=== PATIENT | male | born 1945 | race Caucasian/White ===

== ENCOUNTER → 2023-11-20 08:00 | Outpatient (REF) | payer MEDICARE, OTHER, SELFPAY ==
[2023-11-20 08:45] LABS: Urine Albumin 1+ (Neg - Trace); Urine Bilirubin Negative (Negative); Urine Character Clear (Clear); Urine Color Yellow; Urine Glucose Trace (Negative); Urine Ketone Negative (Negative); Urine Leukocyte Negative (Negative); Urine Nitrite Negative (Negative); Urine Occult Blood 1+ (Negative); Urine Urobilinogen Negative (Neg - 1+)
[2023-11-20 09:06] LABS: Urine Bacteria Few (Negative); Urine Red Blood Cell 0-2 /HPF (0-2); Urine White Cell 0-2 /HPF (0-5)
[2023-11-20 09:07] LABS: % Basophils 2.3 % (0-2); % Eosinophils 5.9 % (0-6); % Immature Granulocytes 0.3 % (0-0.5); % Lymphocytes 33.1 % (20.5-51.1); % Monocytes 10.5 % (1.7-9.3); % Neutrophils 47.9 % (42.2-75.2); Absolute Basophils 0.1 10^3/uL (0-0.2); Absolute Eosinophils 0.2 10^3/uL (0-0.7); Absolute Lymphocytes 1.3 10^3/uL (1.2-3.4); Absolute Monocytes 0.4 10^3/uL (0.1-0.6); Absolute Neutrophils 1.9 10^3/uL (1.4-6.5); Hematocrit 44.8 % (39.0-52.0); Hemoglobin 15.6 g/dL (13.0-18.0); Mean Corp Hgb Conc. 34.8 g/dL (33.0-37.0); Mean Corpuscular Hgb 32.8 pg (27.0-31.0); Mean Corpuscular Volume 94.1 fL (80.0-94.0); Mean Platelet Volume 9.3 fL (7.4-10.4); Nucleated Red Blood Cells % 0 % (-); Platelet Count 239 10^3/uL (130-400); Red Blood Cell Count 4.76 10^6/uL (4.70-6.10); Red Cell Dist. Width 14.2 % (11.5-14.5); White Blood Cell Count 3.9 10^3/uL (4.8-10.8)
[2023-11-20 09:17] LABS: ALT (SGPT) 21 U/L (0-50); AST (SGOT) 25 U/L (17-59); Albumin 3.8 g/dl (3.5-5.0); Alkaline Phosphatase 144 U/L (38-126); Blood Urea Nitrogen 16 mg/dl (9-20); Calcium 9.7 mg/dl (8.4-10.2); Carbon Dioxide 22 mmol/L (22-30); Chloride 106 mmol/L (98-107); Glucose 99 mg/dl (70-99); HDL Cholesterol 53 mg/dl; LDL Cholesterol, Calculated 87 mg/dl; Potassium 3.8 mmol/L (3.5-5.1); Sodium 138 mmol/L (135-145); Total Bilirubin 0.8 mg/dl (0.2-1.3); Total Cholesterol 162 mg/dl (50-199); Total Protein 6.3 g/dl (6.3-8.2); Triglyceride 111 mg/dl (10-149); Very Low Density Lipoprotein 22 mg/dl (0-30); eGFR 56.23
[2023-11-20 09:42] LABS: PSA, Total - Diagnostic 7.57 ng/ml (0.0-4.0)
== END ==
LOC: REG 08:00
PROVIDERS: ATTENDING PHYSICIAN Specialist; FAMILY PHYSICIAN Family Medicine
DX: C91.40 Hairy cell leukemia not having achieved remission (principal); E78.5 Hyperlipidemia, unspecified; I10 Essential (primary) hypertension; C61 Malignant neoplasm of prostate
CPT/HCPCS: 36415; 80053; 80061; 81003; 81015; 84153; 85025

== ENCOUNTER → 2024-01-14 09:43 | Outpatient (REF) | payer MEDICARE, OTHER, SELFPAY | LOC: REG 09:43 | PROVIDERS: ATTENDING PHYSICIAN Specialist; FAMILY PHYSICIAN Family Medicine | DX: C61 Malignant neoplasm of prostate (principal) | CPT/HCPCS: 36415; 84153 ==

== ENCOUNTER → 2024-01-25 08:18 | Outpatient (REF) | payer MEDICARE, OTHER, SELFPAY | LOC: DHCBS MAIN 08:18 | PROVIDERS: ATTENDING PHYSICIAN Nuclear Medicine Nuclear Cardiology; FAMILY PHYSICIAN Family Medicine | DX: I35.0 Nonrheumatic aortic (valve) stenosis (principal); I35.1 Nonrheumatic aortic (valve) insufficiency | CPT/HCPCS: 93306 ==

== ENCOUNTER → 2024-04-04 06:44 | Outpatient (REF) | payer MEDICARE, OTHER, SELFPAY ==
[2024-04-04 08:50] LABS: PSA, Total - Diagnostic 8.03 ng/ml (0.0-4.0)
== END ==
LOC: REG 06:44
PROVIDERS: ATTENDING PHYSICIAN Specialist; FAMILY PHYSICIAN Family Medicine
DX: C61 Malignant neoplasm of prostate (principal)
CPT/HCPCS: 36415; 84153

== ENCOUNTER → 2024-04-06 17:27 | Outpatient (REF) | payer MEDICARE, OTHER, SELFPAY | LOC: PAVMRI 17:27 | PROVIDERS: ATTENDING PHYSICIAN Internal Medicine; FAMILY PHYSICIAN Family Medicine | DX: M54.50 Low back pain, unspecified (principal); C90.00 Multiple myeloma not having achieved remission | CPT/HCPCS: 72148 ==

== ENCOUNTER → 2024-05-18 09:27 | Outpatient (REF) | payer MEDICARE, OTHER, SELFPAY | LOC: RAD 09:27 | PROVIDERS: ATTENDING PHYSICIAN Internal Medicine; FAMILY PHYSICIAN Family Medicine | DX: M85.80 Other specified disorders of bone density and structure, unspecified site (principal); M85.89 Other specified disorders of bone density and structure, multiple sites | CPT/HCPCS: 77080 ==

== ENCOUNTER → 2024-07-06 06:30 | Outpatient (REF) | payer MEDICARE, OTHER, SELFPAY ==
[2024-07-06 08:43] LABS: PSA, Total - Diagnostic 6.67 ng/ml (0.0-4.0)
== END ==
LOC: REG 06:30
PROVIDERS: ATTENDING PHYSICIAN Specialist; FAMILY PHYSICIAN Family Medicine
DX: C61 Malignant neoplasm of prostate (principal)
CPT/HCPCS: 36415; 84153

== ENCOUNTER → 2024-10-10 08:17 | Outpatient (REF) | payer MEDICARE, OTHER, SELFPAY ==
[2024-10-10 09:53] LABS: PSA, Total - Diagnostic 7.72 ng/ml (0.0-4.0)
== END ==
LOC: REG 08:17
PROVIDERS: ATTENDING PHYSICIAN Specialist; FAMILY PHYSICIAN Family Medicine
DX: C61 Malignant neoplasm of prostate (principal)
CPT/HCPCS: 36415; 84153

== ENCOUNTER → 2024-12-22 11:44 | Outpatient (REF) | payer MEDICARE, OTHER, SELFPAY | LOC: RAD 11:44 | PROVIDERS: ATTENDING PHYSICIAN Family Medicine; FAMILY PHYSICIAN Family Medicine | DX: M12.511 Traumatic arthropathy, right shoulder (principal) | CPT/HCPCS: 71101; 73000; 73030 ==

== ENCOUNTER → 2025-01-19 08:13 | Outpatient (REF) | payer MEDICARE, OTHER, SELFPAY ==
[2025-01-19 11:46] LABS: PSA, Total - Diagnostic 8.13 ng/ml (0.0-4.0)
== END ==
LOC: RCS 08:13
PROVIDERS: ATTENDING PHYSICIAN Nuclear Medicine Nuclear Cardiology; FAMILY PHYSICIAN Family Medicine; OTHER PHYSICIAN Specialist
DX: I10 Essential (primary) hypertension (principal); I25.10 Atherosclerotic heart disease of native coronary artery without angina pectoris; C61 Malignant neoplasm of prostate; I35.0 Nonrheumatic aortic (valve) stenosis
CPT/HCPCS: 36415; 84153; 93306

== ENCOUNTER → 2025-04-12 10:37 | Outpatient (REF) | payer MEDICARE, OTHER, SELFPAY ==
[2025-04-12 12:30] LABS: PSA, Total - Diagnostic 9.12 ng/ml (0.0-4.0)
== END ==
LOC: REG 10:37
PROVIDERS: ATTENDING PHYSICIAN Specialist; FAMILY PHYSICIAN Family Medicine
DX: C61 Malignant neoplasm of prostate (principal)
CPT/HCPCS: 36415; 84153

== ENCOUNTER → 2025-08-02 13:02 | Outpatient (REF) | payer MEDICARE, OTHER, SELFPAY ==
[2025-08-02 15:51] LABS: PSA, Total - Diagnostic 9.53 ng/ml (0.0-4.0)
== END ==
LOC: REG 13:02
PROVIDERS: ATTENDING PHYSICIAN Specialist; FAMILY PHYSICIAN Family Medicine
DX: C61 Malignant neoplasm of prostate (principal)
CPT/HCPCS: 36415; 84153

== ENCOUNTER 2025-09-08 13:37 | Inpatient (IN) | payer MEDICARE, OTHER, SELFPAY ==
[2025-09-08] VITALS (11 sets, daily range): BP systolic 116–155; BP diastolic 59–84
--- NOTE | 2025-09-08 07:04 | ED.GENMED ---
History of Present Illness
General
Chief Complaint: Abdominal Symptoms
Source: patient and family
Time Seen by Provider: 09/08/25 06:37
History of Present Illness
History of Present Illness:
80-year-old male presents to the emergency room complaining of abdominal pain, nausea and vomiting. Symptoms began over the past 24 hours. The patient states the abdominal pain is crampy in nature. It is quite intense at its maximum. No history
of bowel obstructions though the patient has had previous abdominal surgeries including cholecystectomy and appendectomy. Pain stays in the abdomen. Does not radiate. He has noted his abdomen to be distended and feels 'hard'. Patient does have
issues with constipation.
Past History
Past History
ED Past Medical History: CAD, Cancer (CLL), Hypercholesterolemia, Other (Chronic sinusitis, low back pain, migraine headaches, Maniers Disease, Sleep apnea uses CPAP raynauds, ), Other (BPH) and Other (Kidney stones)
ED Past Surgical History: Appendectomy, Cholecystectomy, Orthopedic (Left meniscus repair, Lumbar spacer), Urological and Other (Hernia repair, cystoscopy, varicocele repair, right thum amputation)
Social History
Tobacco: Former smoker
Alcohol: Occasional
Personal:
Living: with family
Employment: Retired
Family History
Family History: Negative Diabetes, Hypertension, Asthma or Cancer
Phy Exam
Physical Exam
Physical Exam:
General: Awake, Alert, Oriented X3. No acute distress.
Vitals: unremarkable
Head: Atraumatic
Eyes: Pupils equal, EOMI
Throat: Airway intact, no exudates, dry mucosa
Neck: Trachea midline
Lungs: Clear and equal b/l
Heart: Regular rate, no murmurs
Abd: Soft, somewhat distended, firm, tender diffusely, No pulsatile mass
Neuro: Nonfocal
Skin: Warm, dry, no rash
Extremities: pulses equal b/l, no edema
Course
Orders/Labs/Results
Orders:
Orders
09/08/25 06:26
EKG [Electrocardiogram (*1)] Urgent
Reason for Study: Abdominal Pain
Other Reason for Exam: vomiting
09/08/25 06:27
EKG- Treatment ONCE
09/08/25 06:55
Complete Blood Count/With Diff Urgent
Comprehensive Metabolic Panel Urgent
Lipase Urgent
09/08/25 07:02
CT Abd/pel W Iv And Oral Contr Urgent
Comment:
Reason For Exam: abd pain/vomiting. pre-treatment ordered
HYDROmorphone [Dilaudid] 0.5 mg IV NOW STA
Iohexol [Omnipaque] See Protocol PO NOW STA
Ondansetron Injectable [Zofran] 4 mg IV NOW STA
09/08/25 07:03
Lactated Ringers [Lr] 1,000 ml IV BOLUS
09/08/25 07:04
Diphenhydramine [Benadryl] 50 mg IV NOW STA
Hydrocortisone Sod Succinate [Solu-Cortef] 200 mg IV NOW STA
09/08/25 07:10
Lactic Acid Urgent
Urinalysis Reflex To Culture Urgent
Date Specimen was Collected: 09/08/25
Time Specimen was Collected: 07:08
Urine Microscopic Reflex Cult Urgent
Urine Culture Urgent
ROYAL Source: U
Specimen Description:
Date Specimen was Collected: 09/08/25
Time Specimen was Collected: 07:08
09/08/25 11:43
HYDROmorphone [Dilaudid] 0.5 mg IV NOW STA
Abnormal Lab Results
09/08/25 09/08/25
06:55 07:10
RBC 4.69 L 10^6/uL
(4.70-6.10)
MCV 95.9 H fL
(80.0-94.0)
MCH 33.3 H pg
(27.0-31.0)
Absolute Lymphs (auto) 0.6 L 10^3/uL
(1.2-3.4)
Neutrophils % 79.8 H %
(42.2-75.2)
Lymphocytes % 11.1 L %
(20.5-51.1)
Creatinine 1.5 H mg/dL
(0.7-1.3)
Glucose 147 H mg/dl
(70-99)
Urine RBC 11-15 A /HPF
(0-2)
Urine Bacteria (Reflex) Many A
(Negative)
Urine Albumin (Reflex) 2+ A
(Neg - Trace)
09/08/25 06:55
09/08/25 06:55
Vital Signs
Initial and Last Documented VS:
Initial Vital Signs
Temp Pulse Resp BP Pulse Ox
97.5 F 72 28 131/84 98
09/08/25 06:29 09/08/25 06:29 09/08/25 06:29 09/08/25 06:29 09/08/25 06:29
Last Documented Vital Signs
Temp Pulse Resp BP Pulse Ox
97.5 F 72 28 155/79 96
09/08/25 06:29 09/08/25 06:29 09/08/25 06:29 09/08/25 10:32 09/08/25 10:33
MDM/Problems Addressed
Differential Diagnosis Includes:
Small bowel obstruction, gastroenteritis, diverticulitis
MDM/Problems Addressed:
Patient presents with abdominal pain, abdominal distention and nausea. Labs showed normal white count. Lactate is normal. Rest of the labs are reassuring. CT shows evidence for small bowel obstruction. Patient will require hospitalization.
Hold off on an NG tube at this point as he is not vomiting. Patient will be admitted to the hospitalist.
*Radiology
Radiology exam reviewed: radiology read reviewed
*Pulse Oximetry
SaO2: 98
Oxygen Mode of Delivery: Room air
Patient hypoxic: no
*EKG
Interpretation: abnormal
Heart Rate: 69
Rate: normal
Rhythm: av sequential
QRS Pattern: left bundle branch block
Ischemia: non-specific ST changes
*[employer]er Interpretation
Rate: normal
Interpretation: abnormal
Rhythm: av sequential
*Critical Care Note
Total Time (30-74mins, 75-104mins- exclusive of procedures): Not Applicable
Patient Management
Social determinants of health affecting care: Living situation and Strong social support
ED Attending Note
-
Portions of this chart may have been created with voice recognition software.� Occasional wrong word or��sound alike� substitutions may have occurred due to the inherent limitations of voice recognition software.
Discharge Plan
Departure
Patient Disposition: Admit
Date of Disposition: 09/08/25
Time of Disposition: 11:40
Admit to: Med/Surg
Presentation/result/management discussed w/ accepting MD/DO: Hospitalist
Discharge Problem:
Small bowel obstruction
Prescriptions:
No Action
Vitamin C 100 MG tablet
1,000 mg PO DAILY
multivitamin with folic acid [Tab-A-Kristina] 1 TABLET tablet
1 tab PO DAILY
aspirin [Shauna Low Dose Aspirin] 81 MG tablet,delayed release (DR/EC)
81 mg PO DAILY
bicalutamide 50 mg Tablet
50 mg PO QPM
sennosides [senna] 8.6 mg Tablet
17.2 mg PO DAILY
famotidine [Pepcid] 40 mg Tablet
40 mg PO DAILY
alendronate [Fosamax] 70 mg Tablet
70 mg PO SA
acyclovir 400 mg Tablet
400 mg PO BID
simvastatin [Zocor] 40 mg Tablet
40 mg PO QPM
gabapentin 300 mg Capsule
300 mg PO BID
lenalidomide [Revlimid] 5 mg Capsule
5 mg PO DIRECTED
Rx Instructions:
take for 21 days then 7 days off
silodosin 8 mg Capsule
8 mg PO QPM
omega 6-vtr-vox-fish oil [Fish Oil] 1,200 (144-216) mg Capsule
1 cap PO DAILY
Darzalex 20 mg/mL Solution
20 mg IV MONTHLY
Referrals:
Ross Bedoya MD [Family Provider, Family Practice]
Interventions
Interventions:
*Risk Screen - Suicide Last Done: 09/08/25 06:21
[facility] Fall Risk Assessment Tool Last Done: 09/08/25 08:00
WG-[id number]-[id number] Assessment Last Done: 09/08/25 06:49
Discharge Date and Time
Print Language: OMANI
[2025-09-08] MEDS: ZOFRAN 4 MG IV ×2 (07:18→16:37)
[2025-09-08] MEDS: LR 1000 IV ×2 (07:18→16:37)
[2025-09-08] MEDS: OMNIPAQUE 50 ML PO (07:19)
[2025-09-08] MEDS: DILAUDID 0.5 MG IV ×2 (07:19→12:02)
[2025-09-08 07:26] LABS: Hematocrit 45.0 % (39.0-52.0); Hemoglobin 15.6 g/dL (13.0-18.0); Mean Corp Hgb Conc. 34.7 g/dL (33.0-37.0); Mean Corpuscular Volume 95.9 fL (80.0-94.0); Nucleated Red Blood Cells % 0 % (-); Platelet Count 161 10^3/uL (130-400); Red Cell Dist. Width 14.1 % (11.5-14.5)
[2025-09-08 07:40] LABS: ALT (SGPT) 22 U/L (0-50); AST (SGOT) 19 U/L (17-59); Albumin 4.2 g/dl (3.5-5.0); Alkaline Phosphatase 107 U/L (38-126); Blood Urea Nitrogen 19 mg/dl (9-20); Calcium 9.4 mg/dl (8.4-10.2); Carbon Dioxide 28 mmol/L (22-30); Chloride 104 mmol/L (98-107); Glucose 147 mg/dl (70-99); Lipase 112 U/L (23-300); Potassium 3.8 mmol/L (3.5-5.1); Sodium 138 mmol/L (135-145); Total Protein 6.6 g/dl (6.3-8.2); eGFR 46.77
[2025-09-08 08:26] LABS: Urine Character Clear (Clear)
[2025-09-08 08:48] LABS: Urine Squamous Cell 0-2 /LPF (Few); Urine Urothelial Cell 0-2 /LPF (FEW)
[2025-09-08] MEDS: BENADRYL 50 MG IV (08:55)
[2025-09-08] MEDS: SOLU-CORTEF 200 MG IV (08:55)
--- NOTE | 2025-09-08 13:20 | HPS.HSE ---
Family Physician
-
Family Physician: Ross Bedoya
Chief Complaint
-
ABDOMEN PAIN
History of Present Illness
80-year-old male past medical history extensive who is presenting from home with complaints of abdominal pain, nausea, vomiting. Symptoms started yesterday. States of severe abdominal pain. Induced vomiting yesterday. Subsequently had few
episode of vomiting on the way and in the ER. States improvement in abdominal discomfort after vomiting. Remains with crampy abdominal pain. History of cholecystectomy and appendectomy in the past. States abdominal feels firm. No prior history
of bowel obstruction. States had bowel movement last night. states symptoms improved after receiving pain medication and antinausea medication earlier today. States is due for IV monoclonal antibody September 25 for leukemia.
Medical History
Past Medical History
Past Medical History: Reports Other
Additional Past Medical History:
Hairy cell leukemia
Multiple myeloma
Chronic kidney disease
Prostate cancer
Renal stone
Basal cell carcinoma
OLVIN
Past Surgical History: Reports Other
Additional Past Surgical History:
Spinal stimulator implantation
Spinal rods
Cholecystectomy
Appendectomy
Social History
Drug: None
Family History
Family History: Not pertinent
Allergies / Home Medications
Allergies reflects when Allergies were last updated in [facility].
Home Medications with original date entered in [facility]
Allergy/Medication List:
Allergies
Allergy/AdvReac Type Severity Reaction Status Date / Time
Iodinated Contrast Media Allergy Tongue Verified 09/08/25 06:21
Swelling
IVP DYE Allergy Tongue Uncoded 09/08/25 06:21
Swelling
Home Medications
ascorbic acid (vitamin C) 100 mg tablet (Vitamin C) 1,000 mg PO DAILY Supplement 02/06/20
multivitamin with folic acid 400 mcg tablet (Tab-A-Kristina) 1 tab PO DAILY Supplement 02/06/20
aspirin 81 mg tablet,delayed release (Shauna Low Dose Aspirin) 81 mg PO DAILY 07/11/20
acyclovir 400 mg tablet 400 mg PO BID 09/08/25
alendronate 70 mg tablet (Fosamax) 70 mg PO SA 09/08/25
bicalutamide 50 mg tablet 50 mg PO QPM Cancer 09/08/25
daratumumab 20 mg/mL intravenous solution (Darzalex) 20 mg IV MONTHLY 09/08/25
famotidine 40 mg tablet (Pepcid) 40 mg PO DAILY 09/08/25
gabapentin 300 mg capsule 300 mg PO BID Neurological Condition 09/08/25
lenalidomide 5 mg capsule (Revlimid) 5 mg PO DIRECTED 09/08/25
omega 2-qtr-rlf-fish oil 1,200 mg (144 mg-216 mg) capsule (Fish Oil) 1 cap PO DAILY 09/08/25
sennosides 8.6 mg tablet (senna) 17.2 mg PO DAILY Constipation 09/08/25
silodosin 8 mg capsule 8 mg PO QPM Urinary Issue 09/08/25
simvastatin 40 mg tablet (Zocor) 40 mg PO QPM 09/08/25
Review of Systems
-
History Source: Patient and Family
Constitutional: Reports No Symptoms
EENT: Reports No Symptoms
Respiratory: Reports No Symptoms
Cardiac: Reports No Symptoms
Abdomen/GI: Reports See HPI
: Reports No Symptoms
Musculoskeletal: Reports No Symptoms
Skin: Reports No Symptoms
Neurological: Reports No Symptoms
Endocrine: Reports No Symptoms
Hematologic/Lymphatic: Reports No Symptoms
Psych: Reports No Symptoms
Physical Exam
Vital Signs
Vital Signs
Temp Pulse Resp BP Pulse Ox
97.5 F 72 28 155/79 96
09/08/25 06:29 09/08/25 06:29 09/08/25 06:29 09/08/25 10:32 09/08/25 10:33
Physical Exam
General: Well Developed, Well Nourished and No Apparent Distress
HEENT: NormoCephalic, Moist mucous membranes, Atraumatic, Nose Appears Normal, Ears Appear Normal and Hearing Impaired
Respiratory: Clear
Cardiac: S1/S2 and Regular Rhythm; No Murmur or Rub
GI: Soft and Distended; No Organomegaly
Rectal: Deferred by Provider
Musculoskeletal: No Clubbing, No Cyanosis and No Edema
Skin: No Rash
Neuro: Awake and Nonfocal/grossly intact
Psych: Calm
Laboratory Results
-
09/08/25 06:55
09/08/25 06:55
Laboratory Results
Lactic Acid 1.0 mmol/L (0.7-2.0) 09/08/25 07:10
Total Bilirubin 0.8 mg/dl (0.2-1.3) 09/08/25 06:55
AST 19 U/L (17-59) 09/08/25 06:55
ALT 22 U/L (0-50) 09/08/25 06:55
Alkaline Phosphatase 107 U/L (38-126) 09/08/25 06:55
Lipase 112 U/L (23-300) 09/08/25 06:55
Data Reviewed
-
Diagnostic Radiology: Report Reviewed by me, Discussed with Patient and Discussed with Family
CT Scan: Report Reviewed by me, Discussed with Patient and Discussed with Family
Impression/Plan
-
80-year-old male who is presenting with complaints of abdominal pain, nausea vomiting found to have small bowel obstruction
#Small bowel obstruction
#Small intussusception of the small bowel
N.p.o. for now.
If with severe nausea vomiting will need NG tube placement
Repeat abdominal x-ray in the morning
IV fluid resuscitation
Lactic acid normal
Pain control. Antinausea meds as needed
Await surgical input
Chronic medical problems
Chronic kidney disease-monitor creatinine closely. At 1.5.
Hyperlipidemia-hold po meds.
Neuropathy-hold po meds
Hairy cell leukemia
Multiple myeloma
DVT prophylaxis Lovenox
Full code
Discussed with spouse at bedside in detail
I spent a total of 80 minutes with the patient or on the floor. More than 50% of this time involved counseling and coordination of care.
Portions of this chart may have been created with voice recognition software.� Occasional wrong word or �sound alike� substitutions may have occurred due to the inherent limitations of voice recognition software.
--- NOTE | 2025-09-08 14:03 | CM ---
Chart reviewed and spoke with patient and his Sonia at ED bedside
is a retired RN
Lives in [address]
Independent with ADLs and ambulation
no DME
PCP Dr. Ross Piedra
[facility] in [place]
no hx of VN nor SNF
3 dtrs live locally and supportive
DCP is to go home with services if indicated
can drive
CM will continue to follow up for any dcp needs
--- NOTE | 2025-09-08 15:22 | CON.GS ---
Addendum entered and electronically signed by Isauro Wynn MD 09/08/25 16:13:
I saw and examined the patient independently.
The County Records Management Officer's note was reviewed and I agree with the note, assessment and plan except where noted below.
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
obstruction on CT, likely adhesive from his prior open appendectomy in the 1949s. This is his first such bowel obstruction.
Will plan for nonoperative management for now.
N.p.o., IV fluids. NG tube if patient endorses worsening nausea or has emesis.
Serial abdominal exams, and plain films as needed to follow the oral contrast he got on his CT.
All questions answered, patient and family in the room agreeable to plan of care above.
General surgery will continue to follow.
Original Note:
Consultation
-
Date/Time Consultation Performed: 09/08/25 1500
Medical History
-
Chief Complaint: abdominal pain
History of Present Illness:
Mr Leary is an 80 yo male iwth a h/o Hairy cell leukemia, multiple myeloma, prostate cancer, back pain with spinal rods and stimulator, cholecystectomy and open appendectomy who presents through the ED with abdominal pain to the mid abdomen with
nausea and vomiting that began yesterday shortly after dinner. He reports that his last BM was yesterday morning. He has not passed flatus or stool today. He notes nausea has resolved since receiving zofran. On exam, there is tympany noted to the
left side of the abdomen with associated tenderness. No rebound, rigidity or gaurding.
Past Medical History
Past Medical History: Cancer (Hairy cell leukemia, multiple myeloma, prostate, basal cell skin) and Other (OLVIN, CKD, nephrolithiasis)
Past Surgical History: Appendectomy (open 1955), Cholecystectomy and Orthopedic (spinal rods and stimulator)
Social History
Tobacco: Non-Smoker
Alcohol: Other (rare)
Living: With Family
Family History
Family History: Reviewed & Not Pertinent
Allergies / Home Medications
Allergy/AdvReac Type Severity Reaction Status Date / Time
Iodinated Contrast Media Allergy Tongue Verified 09/08/25 06:21
Swelling
IVP DYE Allergy Tongue Uncoded 09/08/25 06:21
Swelling
�Medication �Instructions �Recorded �Confirmed �Type
ascorbic acid (vitamin C) 100 mg 1,000 mg PO DAILY Supplement 02/06/20 09/08/25 History
tablet (Vitamin C)
multivitamin with folic acid 400 1 tab PO DAILY Supplement 02/06/20 09/08/25 History
mcg tablet (Tab-A-Kristina)
aspirin 81 mg tablet,delayed 81 mg PO DAILY 07/11/20 09/08/25 History
release (Shauna Low Dose Aspirin)
acyclovir 400 mg tablet 400 mg PO BID 09/08/25 09/08/25 History
alendronate 70 mg tablet (Fosamax) 70 mg PO SA 09/08/25 09/08/25 History
bicalutamide 50 mg tablet 50 mg PO QPM Cancer 09/08/25 09/08/25 History
daratumumab 20 mg/mL intravenous 20 mg IV MONTHLY 09/08/25 09/08/25 History
solution (Darzalex)
famotidine 40 mg tablet (Pepcid) 40 mg PO DAILY 09/08/25 09/08/25 History
gabapentin 300 mg capsule 300 mg PO BID Neurological 09/08/25 09/08/25 History
Condition
lenalidomide 5 mg capsule 5 mg PO DIRECTED 09/08/25 09/08/25 History
(Revlimid)
omega 2-vcb-jzr-fish oil 1,200 mg 1 cap PO DAILY 09/08/25 09/08/25 History
(144 mg-216 mg) capsule (Fish Oil)
sennosides 8.6 mg tablet (senna) 17.2 mg PO DAILY Constipation 09/08/25 09/08/25 History
silodosin 8 mg capsule 8 mg PO QPM Urinary Issue 09/08/25 09/08/25 History
simvastatin 40 mg tablet (Zocor) 40 mg PO QPM 09/08/25 09/08/25 History
Review of Systems
-
History Source: Patient and Family
All other systems: Negative unless noted
A 10 point review of systems was completed, and was negative except as per HPI.
Physical Exam
Vital Signs
Temp Pulse Resp BP Pulse Ox
97.5 F 72 28 120/77 94
09/08/25 06:29 09/08/25 06:29 09/08/25 06:29 09/08/25 13:00 09/08/25 13:30
09/07/25 09/08/25 09/09/25
06:59 06:59 06:59
Actual Weight 80.014 kg
Lab Results
09/08/25 06:55
09/08/25 06:55
WBC 5.1 10^3/uL (4.8-10.8) 09/08/25 06:55
Hgb 15.6 g/dL (13.0-18.0) 09/08/25 06:55
Hct 45.0 % (39.0-52.0) 09/08/25 06:55
Plt Count 161 10^3/uL (130-400) 09/08/25 06:55
Abs Immat Gran (auto) 0.0 10^3/uL (0-0.05) 09/08/25 06:55
Neutrophils % 79.8 % (42.2-75.2) H 09/08/25 06:55
Physical Exam
General: Well Developed and Well Nourished
HEENT: Normocephalic, Moist Mucous Membranes and Other ([place])
GI: Soft, Tender (mild to left abdomen with tympany) and Distended
Skin: Warm and Dry
Neuro: Awake and Alert
Data Reviewed
-
CT Scan: Image Personally Visualized and interpreted, Report Reviewed by me, Discussed with Physician, Discussed with Patient and Discussed with Family
Labs: Labs Reviewed by me, Discussed with Physician, Discussed with Patient and Discussed with Family
Old Records: Reviewed
Assessment / Plan
-
80 yo male h/o Hairy cell leukemia, multiple myeloma, prostate cancer, back pain with spinal rods and stimulator, cholecystectomy and open appendectomy who presents through the ED with abd pain with n/v since last night. Symptomatic relief with
analgesics/antiemetics since presentation. CT abdomen reviewed and consistent with SBO with transition point to the right pelvis, likely adhesive. No evidence of bowel threat or compromise. No evidence of closed loop obstruction. Afebrile. No
leukocytosis. Cr mildly elevated but near baseline. Afebrile. VSS.
Plan:
Keep NPO for bowel rest. If vomiting recurs would place NGT for decompression
XR in Am
IVF as per primary team
analgesics/antiemetics
He may require surgery if no improvement but will follow for improvement at this time with bowel rest and supportive measures, no plans for surgery at this time.
[2025-09-08] MEDS: LOVENOX 40 MG SC (17:28)
[2025-09-09] MEDS: OFIRMEV 100 IV (03:59)
[2025-09-09] MEDS: LR 1000 IV (05:23)
[2025-09-09 05:51] LABS: Hematocrit 38.6 % (39.0-52.0); Hemoglobin 13.0 g/dL (13.0-18.0); Mean Corp Hgb Conc. 33.7 g/dL (33.0-37.0); Mean Corpuscular Volume 95.8 fL (80.0-94.0); Nucleated Red Blood Cells % 0 % (-); Platelet Count 133 10^3/uL (130-400); Red Cell Dist. Width 14.0 % (11.5-14.5)
[2025-09-09 06:28] LABS: Blood Urea Nitrogen 18 mg/dl (9-20); Calcium 8.3 mg/dl (8.4-10.2); Carbon Dioxide 26 mmol/L (22-30); Chloride 108 mmol/L (98-107); Estimated Creatinine Clearance 40 ml/min; Glucose 81 mg/dl (70-99); Potassium 3.7 mmol/L (3.5-5.1); Sodium 136 mmol/L (135-145); eGFR 50.81
[2025-09-09 07:36] VITALS: BP 116/61
--- NOTE | 2025-09-09 12:04 | W.PN.GS2 ---
Today's Communication / Plan
-
Trial of clears
Assessment / Plan
-
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
likely adhesive from his prior open appendectomy in the 1950s. This is his first such bowel obstruction.
AFVSS
Improvement in symptoms overnight
F/U XR today with contrast into the colon
Plan:
Will continue nonoperative management for now.
Trial of clears
All questions answered, patient and family in the room agreeable to plan of care above.
General surgery will continue to follow.
Subjective Data
-
Date of Service: September 09, 2025
Pt seen and examined at bedside with Dr. Pena. Denies n/v. Some intermittent hiccups. No belching. Does not think he has been passing flatus. Notes bloating is improved.
Objective Data
-
Intake and Output
09/08/25 09/09/25 09/10/25
06:59 06:59 06:59
Intake Total 240 / 240
Balance 240 / 240
Intake:
Oral fluids 240 / 240
Other:
Number of approximated SMALL 2
amounts of urine
Vital Signs
Temp Pulse Resp BP Pulse Ox
98.3 F 48 17 116/61 97
09/09/25 07:36 09/09/25 07:36 09/09/25 07:36 09/09/25 07:36 09/09/25 07:36
Lab Results
09/09/25 05:13
09/09/25 05:13
Calcium 8.3 mg/dl (8.4-10.2) L 09/09/25 05:13
Total Bilirubin 0.8 mg/dl (0.2-1.3) 09/08/25 06:55
AST 19 U/L (17-59) 09/08/25 06:55
ALT 22 U/L (0-50) 09/08/25 06:55
Alkaline Phosphatase 107 U/L (38-126) 09/08/25 06:55
Total Protein 6.6 g/dl (6.3-8.2) 09/08/25 06:55
Albumin 4.2 g/dl (3.5-5.0) 09/08/25 06:55
Physical Exam
-
NAD
ABD soft, nt, nd
--- NOTE | 2025-09-09 12:19 | W.PN.HOSP.TC ---
Addendum entered and electronically signed by Stu Alamo MD 09/10/25 11:43:
late addendum but was examined on 09/09/25
General: Well Developed and No Apparent Distress
HEENT: Normocephalic, Atraumatic and Moist Mucous Membranes
Respiratory: Non Labored Respirations
GI: Soft, Nontender, Nondistended and Normal Bowel Sounds; Negative Organomegaly
Rectal: Deferred by Provider
Musculoskeletal: No Clubbing, No Cyanosis and No Edema
Skin: Warm; Negative Rash
Neuro: Awake and Nonfocal/Grossly Intact
Psych: Calm
Original Note:
Today's Communication/Plan
-
clears for now
monitor bowel function
OOB/ambulation if can tolerate
Assessment / Plan
Assessment / Plan
80-year-old male who is presenting with complaints of abdominal pain, nausea vomiting found to have small bowel obstruction
#Small bowel obstruction
#Small intussusception of the small bowel
Repeat abdominal x-ray -showing contrast in colon
IV fluid resuscitation-can be stopped if tolerating liquids
Lactic acid normal
Pain control. Antinausea meds as needed
currently on clears
surgery following
Chronic medical problems
Chronic kidney disease-monitor creatinine closely. At 1.4
Hyperlipidemia- cont statin
Neuropathy-cont gabapentin
Hairy cell leukemia
Multiple myeloma
DVT prophylaxis Lovenox
Full code
Discussed with spouse at bedside in detail
Anticipated Discharge: 24 - 48 hours
Subjective/Interval History
-
Date of Service: September 09, 2025
passing flatuelnce
diet got advanced to clears
Objective Data
-
Labs:
Laboratory Results
09/09/25
05:13
WBC 3.8 L
Hgb 13.0
Hct 38.6 L
Plt Count 133
Sodium 136
Potassium 3.7
Chloride 108 H
Carbon Dioxide 26
BUN 18
Creatinine 1.4 H
Glucose 81
Calcium 8.3 L
Vital Signs:
Vital Signs
Temp Pulse Resp BP Pulse Ox
98.3 F 48 17 116/61 97
09/09/25 07:36 09/09/25 07:36 09/09/25 07:36 09/09/25 07:36 09/09/25 07:36
I&O
09/08/25 09/09/25 09/10/25
06:59 06:59 06:59
Intake Total 240 / 240
Balance 240 / 240
[2025-09-09 15:20] VITALS: BP 116/66
[2025-09-09] MEDS: LIPITOR 20 MG PO (17:39)
[2025-09-09] MEDS: CASODEX 50 MG PO (17:39)
[2025-09-09] MEDS: NON-FORMULARY ITEM 5 MG PO (17:39)
[2025-09-09] MEDS: LOVENOX 40 MG SC (17:39)
[2025-09-09 18:51] LABS: Hepatitis C Antibody Negative (Negative)
[2025-09-09] MEDS: ZOVIRAX 400 MG PO (20:10)
[2025-09-09] MEDS: NEURONTIN 300 MG PO (20:10)
[2025-09-09 23:00] VITALS: BP 123/66
[2025-09-10 07:00] VITALS: BP 136/74
[2025-09-10 07:54] LABS: Hematocrit 40.2 % (39.0-52.0); Hemoglobin 13.6 g/dL (13.0-18.0); Mean Corp Hgb Conc. 33.8 g/dL (33.0-37.0); Mean Corpuscular Volume 96.2 fL (80.0-94.0); Nucleated Red Blood Cells % 0 % (-); Platelet Count 133 10^3/uL (130-400); Red Cell Dist. Width 13.9 % (11.5-14.5)
[2025-09-10 08:15] LABS: Blood Urea Nitrogen 13 mg/dl (9-20); Calcium 8.0 mg/dl (8.4-10.2); Carbon Dioxide 25 mmol/L (22-30); Estimated Creatinine Clearance 40 ml/min; Glucose 77 mg/dl (70-99); Potassium 3.9 mmol/L (3.5-5.1); Sodium 137 mmol/L (135-145); eGFR 50.81
[2025-09-10 08:20] LABS: Chloride 108 mmol/L (98-107)
[2025-09-10] MEDS: NEURONTIN 300 MG PO ×2 (09:47→20:04)
[2025-09-10] MEDS: PEPCID 40 MG PO (09:47)
[2025-09-10] MEDS: ZOVIRAX 400 MG PO ×2 (09:47→20:04)
[2025-09-10] MEDS: ASPIR LOW (ENTERIC COATED) 81 MG PO (09:47)
--- NOTE | 2025-09-10 11:25 | W.PN.HOSP.TC ---
Today's Communication/Plan
-
Out of bed ambulation encouraged
surgery recs
Restarted home medication
monitor diet tolerance
Assessment / Plan
Assessment / Plan
80-year-old male who is presenting with complaints of abdominal pain, nausea vomiting found to have small bowel obstruction
#Small bowel obstruction
#Small intussusception of the small bowel
Repeat abdominal x-ray -showing contrast in colon
Status post IV fluids.
Lactic acid normal
Pain control. Antinausea meds as needed
Diet has been advanced to fulls. Diet advancement per surgery.
surgery following
Chronic medical problems
Chronic kidney disease-monitor creatinine closely. At 1.4
Hyperlipidemia- cont statin
Neuropathy-cont gabapentin
Hairy cell leukemia
Multiple myeloma-Cont revilimid
Prostrate cancer
DVT prophylaxis Lovenox
Full code
Discussed with spouse at bedside in detail
Anticipated Discharge: Within 24 hours
Subjective/Interval History
-
Date of Service: September 10, 2025
states of mild abd cramping earlier today
having bm
Objective Data
-
Labs:
Laboratory Results
09/10/25
06:16
WBC 3.2 L
Hgb 13.6
Hct 40.2
Plt Count 133
Sodium 137
Potassium 3.9
Chloride 108 H
Carbon Dioxide 25
BUN 13
Creatinine 1.4 H
Glucose 77
Calcium 8.0 L
Vital Signs:
Vital Signs
Temp Pulse Resp BP Pulse Ox
97.9 F 54 16 136/74 97
09/10/25 07:00 09/10/25 07:00 09/10/25 07:00 09/10/25 07:00 09/10/25 07:00
I&O
09/09/25 09/10/25 09/11/25
06:59 06:59 06:59
Intake Total 240 / 240 1080 / 1080
Output Total 400 / 400
Balance 240 / 240 680 / 680
Physical Exam
-
General: Well Developed and No Apparent Distress
HEENT: Normocephalic, Atraumatic and Moist Mucous Membranes
Respiratory: Non Labored Respirations
Cardiac: Negative Murmur, Rub or Gallop
GI: Soft, Nontender, Nondistended and Normal Bowel Sounds; Negative Organomegaly
Rectal: Deferred by Provider
Musculoskeletal: No Clubbing, No Cyanosis and No Edema
Skin: Warm; Negative Rash
Neuro: Awake and Nonfocal/Grossly Intact
Psych: Calm
--- NOTE | 2025-09-10 11:58 | W.PN.GS2 ---
Today's Communication / Plan
-
full liquids
Assessment / Plan
-
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
likely adhesive from his prior open appendectomy in the 1950s. This is his first such bowel obstruction.
AFVSS
F/U XR 09/09 with contrast into the colon
Passing stools but with some distention/tenderness. Sensation of fullness after PO intake
Plan:
Will continue nonoperative management for now.
Ok for full liquids
All questions answered, patient and family in the room agreeable to plan of care above.
General surgery will continue to follow.
Subjective Data
-
Date of Service: September 10, 2025
Pt seen and examined at bedside with Dr. Pena. Denies n/v. Feeling of fullness after meals with some cramping. Some more bloating today. Passing liquid stools and flatus
Objective Data
-
Intake and Output
09/09/25 09/10/25 09/11/25
06:59 06:59 06:59
Intake Total 240 / 240 1080 / 1080
Output Total 400 / 400
Balance 240 / 240 680 / 680
Intake:
Oral fluids 240 / 240 600 / 600
IV fluids (Total) 480 / 480
Output:
Urine, Voided 400 / 400
Other:
Number of approximated SMALL 2
amounts of urine
Number of approximated MODERATE 1
amounts of urine
Vital Signs
Temp Pulse Resp BP Pulse Ox
97.9 F 54 16 136/74 97
09/10/25 07:00 09/10/25 07:00 09/10/25 07:00 09/10/25 07:00 09/10/25 07:00
Lab Results
09/10/25 06:16
09/10/25 06:16
Calcium 8.0 mg/dl (8.4-10.2) L 09/10/25 06:16
Total Bilirubin 0.8 mg/dl (0.2-1.3) 09/08/25 06:55
AST 19 U/L (17-59) 09/08/25 06:55
ALT 22 U/L (0-50) 09/08/25 06:55
Alkaline Phosphatase 107 U/L (38-126) 09/08/25 06:55
Total Protein 6.6 g/dl (6.3-8.2) 09/08/25 06:55
Albumin 4.2 g/dl (3.5-5.0) 09/08/25 06:55
Physical Exam
-
NAD
ABD soft, minimal tenderness to upper left abdomen, mild distention
[2025-09-10 15:00] VITALS: BP 111/64
[2025-09-10] MEDS: LIPITOR 20 MG PO (17:55)
[2025-09-10] MEDS: NON-FORMULARY ITEM 5 MG PO (17:55)
[2025-09-10] MEDS: CASODEX 50 MG PO (17:55)
[2025-09-10] MEDS: LOVENOX 40 MG SC (17:55)
[2025-09-10] MEDS: MELATONIN 5 MG PO (22:00)
[2025-09-10 23:00] VITALS: BP 116/67
[2025-09-11 06:00] VITALS: BMI 28.7
[2025-09-11 07:00] VITALS: BP 116/63
[2025-09-11 07:55] LABS: Hematocrit 38.5 % (39.0-52.0); Hemoglobin 13.6 g/dL (13.0-18.0); Mean Corp Hgb Conc. 35.3 g/dL (33.0-37.0); Mean Corpuscular Volume 94.1 fL (80.0-94.0); Platelet Count 129 10^3/uL (130-400); Red Cell Dist. Width 13.7 % (11.5-14.5)
--- NOTE | 2025-09-11 08:17 | W.PN.GS2 ---
Addendum entered and electronically signed by Isauro Wynn MD 09/11/25 13:22:
I saw and examined the patient independently.
The Postal Inspector's note was reviewed and I agree with the note, assessment and plan except where noted below.
Comment: This is an 80-year-old male with medical history below who presented with an adhesive small bowel obstruction that has resolved with nonoperative management.
Advance diet.
Dispo per primary.
Patient to follow-up as needed.
Original Note:
Today's Communication / Plan
-
advance diet
Assessment / Plan
-
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
likely adhesive from his prior open appendectomy in the 1950s. This is his first such bowel obstruction.
AFVSS
F/U XR 09/09 with contrast into the colon
Passing stools but with minimal distention/tenderness
No further nausea, feels quite hungry
Plan:
Will continue nonoperative management for now.
Ok for low residue diet
Ok for d/c from surgical standpoint once tolerating diet
All questions answered, patient and family in the room agreeable to plan of care above.
Subjective Data
-
Date of Service: September 11, 2025
Pt seen and examined at bedside. Spouse present and questions addressed. Denies n/v. Tolerating fulls. Feels hungry. Minimal occasional cramping. Passing flatus and occasional loose stools.
Objective Data
-
Intake and Output
09/10/25 09/11/25 09/12/25
06:59 06:59 06:59
Intake Total 1080 / 1080 700 / 700
Output Total 400 / 400
Balance 680 / 680 700 / 700
Intake:
Oral fluids 600 / 600 700 / 700
IV fluids (Total) 480 / 480
Output:
Urine, Voided 400 / 400
Other:
Number of approximated SMALL 1
amounts of urine
Number of approximated MODERATE 1 2
amounts of urine
Number of approximated LARGE 1
amounts of urine
Vital Signs
Temp Pulse Resp BP Pulse Ox
98.0 F 51 16 116/67 96
09/10/25 23:00 09/10/25 23:00 09/10/25 23:00 09/10/25 23:00 09/10/25 23:00
Lab Results
09/11/25 07:18
Calcium 8.0 mg/dl (8.4-10.2) L 09/10/25 06:16
Total Bilirubin 0.8 mg/dl (0.2-1.3) 09/08/25 06:55
AST 19 U/L (17-59) 09/08/25 06:55
ALT 22 U/L (0-50) 09/08/25 06:55
Alkaline Phosphatase 107 U/L (38-126) 09/08/25 06:55
Total Protein 6.6 g/dl (6.3-8.2) 09/08/25 06:55
Albumin 4.2 g/dl (3.5-5.0) 09/08/25 06:55
Physical Exam
-
NAD
ABD soft, minimal tenderness to upper left abdomen, minimal distention
[2025-09-11 08:20] LABS: Blood Urea Nitrogen 11 mg/dl (9-20); Calcium 8.0 mg/dl (8.4-10.2); Carbon Dioxide 22 mmol/L (22-30); Chloride 111 mmol/L (98-107); Estimated Creatinine Clearance 37 ml/min; Glucose 88 mg/dl (70-99); Nucleated Red Blood Cells % 0 % (-); Potassium 3.5 mmol/L (3.5-5.1); Sodium 136 mmol/L (135-145); eGFR 55.53
[2025-09-11] MEDS: PEPCID 40 MG PO (09:03)
[2025-09-11] MEDS: ASPIR LOW (ENTERIC COATED) 81 MG PO (09:03)
[2025-09-11] MEDS: NEURONTIN 300 MG PO (09:03)
[2025-09-11] MEDS: ZOVIRAX 400 MG PO (09:03)
--- NOTE | 2025-09-11 09:37 | W.PN.HOSP.TC ---
Today's Communication/Plan
-
dc
Assessment / Plan
Assessment / Plan
80yo M with PMHx of osteoporosis, CAD, HLD, multiple lyeloma, hairy cell leukemia, OLVIN, spinal stenosis s/p spinal stimulator, Hx of appendectomy came with colici abdominal pain, found SBO on CT, improved on conservative mgmt. ALso signs of small
intususception at the junction of the 4th portion of sduodenum and jejunum without obstruction.
A/P:
#MAll duodenal intussusception
#SBO
Gen Sx consult
resolved on concervative mgmt
had BM before discharge
Advance diet as tolerated
#Hepatic cyst
#Fatty infiltration of the pancreas
avoid alcohol
#Chronic compression Fx T12, L4 2/2 osteoporosis
#DJD
#Hx of spinal stenosis
cont Tylenol, PT as needed
#Nephrolithiasis
#BPH with Hx of prostate CA
Non-obstrcucting
outpatient urology as needed
#Hairy cell leukoemia
#MM
#Chronic leukopenia
followed in [facility] in [facility]
Scheduled for infusion on 09/25/25
Repeat CBC in 5-7 days - patient and verbalized understanding of the instrcutions
DVT ppx lovenox
Full code
I have spent at least 38min reviewing hcart, test results, communication with consultants, bedside and providing direct patient care
Anticipated Discharge: Today
Subjective/Interval History
-
Date of Service: September 11, 2025
Objective Data
-
Labs:
Laboratory Results
09/11/25
07:18
WBC 2.5 L
Hgb 13.6
Hct 38.5 L
Plt Count 129 L
Sodium 136
Potassium 3.5
Chloride 111 H
Carbon Dioxide 22
BUN 11
Creatinine 1.3
Glucose 88
Calcium 8.0 L
Vital Signs:
Vital Signs
Temp Pulse Resp BP Pulse Ox
97.5 F 47 16 116/63 98
09/11/25 07:00 09/11/25 07:00 09/11/25 07:00 09/11/25 07:00 09/11/25 07:00
I&O
09/10/25 09/11/25 09/12/25
06:59 06:59 06:59
Intake Total 1080 / 1080 700 / 700
Output Total 400 / 400
Balance 680 / 680 700 / 700
Review of Systems
-
History Source: Patient
All other systems: Reviewed and negative
Physical Exam
-
General: No Apparent Distress and Comfortable
Respiratory: Clear to Auscultation
Cardiac: Regular Rhythm
GI: Soft, Nontender and Nondistended
Psych: Calm
--- NOTE | 2025-09-11 09:39 | W.DCSUMMARY ---
Discharge Summary
Discharge Data
Date of Admission: 09/08/25
Date of Discharge: 09/11/25
-
Pending Results: No
Hospital Course
80yo M with PMHx of osteoporosis, CAD, HLD, multiple lyeloma, hairy cell leukemia, OLVIN, spinal stenosis s/p spinal stimulator, Hx of appendectomy came with colici abdominal pain, found SBO on CT, improved on conservative mgmt. ALso signs of small
intususception at the junction of the 4th portion of sduodenum and jejunum without obstruction. Tolerated low residual diet and as per agreement with [facility] - medcially stable to be d/c home. CBC oin 1 week with PCP advised. Ouitpatient urology
follow up advised
I have spent at least 38min reviewing hcart, test results, communication with consultants and providing direct patient care
Patient was managed for:
#Small duodenal intussusception
#SBO
#Hepatic cyst
#Fatty infiltration of the pancreas
#Chronic compression Fx T12, L4 2/2 osteoporosis
#DJD
#Hx of spinal stenosis
#Nephrolithiasis
#BPH with Hx of prostate CA
#Hairy cell leukoemia
#MM
#Chronic leukopenia
Discharge Plan
-
Patient Disposition: Home (Routine Discharge)
Discharge Diagnosis/Procedures: Small bowel obstruction
Diet: Low Residue
Activity: As tolerated
Blood Work: CBC in 5-7 days with family doctor
Activity Restrictions/Additional Instructions:
Schedule appointment with your Urologist for kidney stones
Referrals:
Ross Bedoya MD [Family Provider, Family Practice] - in less than 1 week
Referral Note: CBC
Prescriptions:
Continued
Vitamin C 100 MG tablet
1,000 mg PO DAILY
multivitamin with folic acid [Tab-A-Kristina] 1 TABLET tablet
1 tab PO DAILY
aspirin [Shauna Low Dose Aspirin] 81 MG tablet,delayed release (DR/EC)
81 mg PO DAILY
bicalutamide 50 mg Tablet
50 mg PO QPM
sennosides [senna] 8.6 mg Tablet
17.2 mg PO DAILY
famotidine [Pepcid] 40 mg Tablet
40 mg PO DAILY
alendronate [Fosamax] 70 mg Tablet
70 mg PO SA
acyclovir 400 mg Tablet
400 mg PO BID
simvastatin [Zocor] 40 mg Tablet
40 mg PO QPM
gabapentin 300 mg Capsule
300 mg PO BID
lenalidomide [Revlimid] 5 mg Capsule
5 mg PO DIRECTED
Rx Instructions:
take for 21 days then 7 days off
silodosin 8 mg Capsule
8 mg PO QPM
omega 6-uci-drr-fish oil [Fish Oil] 1,200 (144-216) mg Capsule
1 cap PO DAILY
Darzalex 20 mg/mL Solution
20 mg IV MONTHLY
Discharge Orders:
Discharge Patient (As Directed); Ordered 09/11/25
Ordered By: Saul Hodge
Discharge Date and Time
Print Language: [place]
[2025-09-11 13:00] VITALS: BP 114/64
== END 2025-09-11 13:28 | disposition home or self-care (01) | DRG 389 ==
LOC: 2 SOUTH 13:37
PROVIDERS: ADMITTING PHYSICIAN Hospitalist; ATTENDING PHYSICIAN Internal Medicine; CONSULT PHYSICIAN Surgery; EMERGENCY PHYSICIAN Emergency Medicine; FAMILY PHYSICIAN Family Medicine
DX: K56.50 Intestinal adhesions [bands], unspecified as to partial versus complete obstruction (principal); C90.00 Multiple myeloma not having achieved remission; C91.40 Hairy cell leukemia not having achieved remission; C91.10 Chronic lymphocytic leukemia of B-cell type not having achieved remission; Z87.891 Personal history of nicotine dependence; K56.1 Intussusception; N18.9 Chronic kidney disease, unspecified; I12.9 Hypertensive chronic kidney disease with stage 1 through stage 4 chronic kidney disease, or unspecified chronic kidney disease; G62.9 Polyneuropathy, unspecified; Z79.82 Long term (current) use of aspirin
CPT/HCPCS: 74018; 74177; 80048; 80053; 81003; 81015; 83605; 83690; 85025; 86803; 87086; 93005; 96361; 96374; 96375; 96376; 99285; Q9967